=== PATIENT | female | born 1935 | race Caucasian/White ===

== ENCOUNTER 2018-04-23 13:41 | Emergency (ER) | payer MEDICARE, BC ==
--- NOTE | 2018-04-23 14:04 | EDM.PDOC ---
ED HPI GENERAL MEDICAL PROBLEM - General Chief Complaint: General Stated Complaint: FELL Time Seen by Provider: 04/23/18 14:02 Source of Information: Reports: Patient, RN Notes Reviewed History Limitations: Reports: No Limitations - History of Present Illness INITIAL COMMENTS - FREE TEXT/NARRATIVE: Naye presents today via EMS for complaints of fall at unknown time last night or today. She was found at 11:30 wrapped in a sheet on her bedroom floor. Patient's home health aide left yesterday at 1600. Naye complains of pain to her right thigh, she denies other areas of pain, nausea, dizziness or difficulty breathing. - Related Data Allergies Allergy/AdvReac Type Severity Reaction Status Date / Time Sulfa (Sulfonamide Allergy Cannot Verified 04/23/18 13:55 Antibiotics) Remember Home Meds: Home Meds Citalopram [Citalopram HBr] 1 tab PO DAILY 04/23/18 [History] Donepezil HCl 1 tab PO DAILY 04/23/18 [History] Losartan [Cozaar] 1 tab PO DAILY 04/23/18 [History] Oxybutynin Chloride [Ditropan Xl] 1 tab PO DAILY 04/23/18 [History] ED ROS GENERAL - Review of Systems Review Of Systems: See Below Constitutional: Denies: Fever, Chills, Malaise HEENT: Reports: No Symptoms Cardiovascular: Reports: No Symptoms Endocrine: Reports: No Symptoms GI/Abdominal: Reports: No Symptoms : Reports: No Symptoms Musculoskeletal: Reports: Other (right thigh pain) Skin: Reports: Dryness. Denies: Bruising, Pruritis, Rash, Erythema, Wound Neurological: Reports: Confusion, Other (Fall). Denies: Dizziness, Headache, Numbness, Tingling, Weakness Psychiatric: Reports: Confusion, Other (Patient rn patient care reports one day last week she arrived to Naye's house at 1530, found her still laying in bed. Naye reported to her that she had a terrible dream that she had been sick all day. The rn patient care found Naye had used her clean clothing that was laid out to try to clean up vomit on the floor. ) Hematologic/Lymphatic: Reports: No Symptoms Immunologic: Reports: No Symptoms ED EXAM, GENERAL - Physical Exam Exam: See Below Free Text/Narrative:: Naye is a pleasant 83 year old female presenting after being found on the floor of her home today at 11:30 Naye complains of pain to her right thigh. Exam Limited By: Other (Patient suffers from memory issues, she has no official diagnosis of Alzheimer disease.) General Appearance: No Apparent Distress, Other (Flat affect, looks to rn patient care for answering questions. ) Eye Exam: Bilateral Eye: EOMI, Normal Inspection, PERRL Ears: Normal External Exam, Normal Canal, Hearing Grossly Normal, Normal TMs Ear Exam: Bilateral Ear: Auricle Normal, Canal Normal, TM normal Nose: Normal Inspection, Normal Mucosa, No Blood Throat/Mouth: Normal Inspection, Normal Lips, Normal Voice, No Airway Compromise Head: Atraumatic, Normocephalic Neck: Normal Inspection, Supple, Non-Tender, Full Range of Motion. No: Lymphadenopathy (R), Lymphadenopathy (L) Respiratory/Chest: No Respiratory Distress, Lungs Clear, Normal Breath Sounds, No Accessory Muscle Use, Chest Non-Tender Cardiovascular: Normal Peripheral Pulses, Regular Rate, Rhythm, No Edema, No Rub , Other (Noted murmur) Peripheral Pulses: 2+: Radial (L), Radial (R), Dorsalis Pedis (L), Dorsalis Pedis (R) GI/Abdominal: Normal Bowel Sounds, Soft, Non-Tender, No Organomegaly, No Distention, No Mass. No: Guarding, Rigid, Rebound Back Exam: Normal Inspection, Full Range of Motion. No: CVA Tenderness (R), CVA Tenderness (L) Extremities: No Pedal Edema, Normal Capillary Refill, Leg Pain, Limited Range of Motion, Other (pain with internal rotation to right hip). No: Joint Swelling , Nasim's Sign, Increased Warmth, Pallor Neurological: Confused, Memory Loss Remote Events, Other (Looks to rn patient care to answer questions when asked questions. She is not alert to day, time, year or situtation. ) Psychiatric: Normal Affect, Normal Mood Skin Exam: Warm, Dry, Intact, Normal Color, No Rash Lymphatic: No Adenopathy EKG INTERPRETATION EKG Date: 04/23/18 Time: 14:25 Rhythm: NSR Rate (Beats/Min): 63 [place]: Normal P-Wave: Present QRS: Normal ST-T: Normal QT: Normal Course - Vital Signs Last Recorded V/S: Last Vital Signs Temp 36.7 C 04/23/18 15:21 Pulse 63 04/23/18 15:21 Resp 18 04/23/18 15:21 BP 125/62 04/23/18 15:21 Pulse Ox 96 04/23/18 15:21 - Orders/Labs/Meds Orders: Active Orders 24 hr Category Date Time Status EKG Documentation Completion [RC] ASDIRECTED Care 04/23/18 14:07 Active Saline Lock Insert [OM.PC] Routine Oth 04/23/18 14:27 Ordered EKG 12 Lead [EK] Routine Ther 04/23/18 14:07 Ordered Labs: Laboratory Tests 04/23/18 04/23/18 04/23/18 Range/Units 14:00 14:00 14:00 WBC 9.0 (4.5-11.0) K/uL RBC 4.02 (3.30-5.50) M/uL Hgb 11.9 L (12.0-15.0) g/dL Hct 36.3 (36.0-48.0) % MCV 90 (80-98) fL MCH 30 (27-31) pg MCHC 33 (32-36) % Plt Count 304 (150-400) K/uL Neut % (Auto) 79 H (36-66) % Lymph % (Auto) 7 L (24-44) % [place] % (Auto) 14 H (2-6) % Eos % (Auto) 0 L (2-4) % Baso % (Auto) 0 (0-1) % Sodium 137 L (140-148) mmol/L Potassium 3.9 (3.6-5.2) mmol/L Chloride 101 (100-108) mmol/L Carbon Dioxide 27 (21-32) mmol/L Anion Gap 12.9 (5.0-14.0) mmol/L BUN 16 (7-18) mg/dL Creatinine 0.9 (0.6-1.0) mg/dL Est Cr Clr Drug Dosing 40.18 mL/min Estimated GFR (MDRD) 60 (>60) Glucose 98 (74-106) mg/dL Calcium 8.2 L (8.5-10.1) mg/dL Total Bilirubin 0.6 (0.2-1.0) mg/dL AST 18 (15-37) U/L ALT 14 (12-78) U/L Alkaline Phosphatase 75 (46-116) U/L CK-MB (CK-2) 2.7 (0-3.6) mg/mL Troponin I (0.000-0.056) ng/mL Total Protein 6.3 L (6.4-8.2) g/dL Albumin 3.1 L (3.4-5.0) g/dL Globulin 3.2 (2.3-3.5) g/dL Albumin/Globulin Ratio 1.0 L (1.2-2.2) TSH, Ultra Sensitive 1.340 (0.358-3.740) uIU/mL Urine Color Urine Appearance Urine pH (4.5-8.0) Ur Specific [place] (1.008-1.030) Urine Protein (NEGATIVE) mg/dL Urine Glucose (UA) (NEGATIVE) mg/dL Urine Ketones (NEGATIVE) mg/dL Urine Occult Blood (NEGATIVE) Urine Nitrite (NEGATIVE) Urine Bilirubin (NEGATIVE) Urine Urobilinogen (NORMAL) mg/dL Ur Leukocyte Esterase (NEGATIVE) Urine RBC (0-5) Urine WBC (0-5) Ur Epithelial Cells Amorphous Sediment Urine Bacteria Urine Mucus 04/23/18 04/23/18 Range/Units 14:09 14:32 WBC (4.5-11.0) K/uL RBC (3.30-5.50) M/uL Hgb (12.0-15.0) g/dL Hct (36.0-48.0) % MCV (80-98) fL MCH (27-31) pg MCHC (32-36) % Plt Count (150-400) K/uL Neut % (Auto) (36-66) % Lymph % (Auto) (24-44) % [place] % (Auto) (2-6) % Eos % (Auto) (2-4) % Baso % (Auto) (0-1) % Sodium (140-148) mmol/L Potassium (3.6-5.2) mmol/L Chloride (100-108) mmol/L Carbon Dioxide (21-32) mmol/L Anion Gap (5.0-14.0) mmol/L BUN (7-18) mg/dL Creatinine (0.6-1.0) mg/dL Est Cr Clr Drug Dosing mL/min Estimated GFR (MDRD) (>60) Glucose (74-106) mg/dL Calcium (8.5-10.1) mg/dL Total Bilirubin (0.2-1.0) mg/dL AST (15-37) U/L ALT (12-78) U/L Alkaline Phosphatase (46-116) U/L CK-MB (CK-2) (0-3.6) mg/mL Troponin I < 0.017 (0.000-0.056) ng/mL Total Protein (6.4-8.2) g/dL Albumin (3.4-5.0) g/dL Globulin (2.3-3.5) g/dL Albumin/Globulin Ratio (1.2-2.2) TSH, Ultra Sensitive (0.358-3.740) uIU/mL Urine Color Yellow Urine Appearance Clear Urine pH 6.0 (4.5-8.0) Ur Specific [place] 1.015 (1.008-1.030) Urine Protein Negative (NEGATIVE) mg/dL Urine Glucose (UA) Normal (NEGATIVE) mg/dL Urine Ketones 15 H (NEGATIVE) mg/dL Urine Occult Blood Negative (NEGATIVE) Urine Nitrite Negative (NEGATIVE) Urine Bilirubin Negative (NEGATIVE) Urine Urobilinogen Normal (NORMAL) mg/dL Ur Leukocyte Esterase Negative (NEGATIVE) Urine RBC 0-5 (0-5) Urine WBC 0-5 (0-5) Ur Epithelial Cells Rare Amorphous Sediment Few Urine Bacteria Not seen Urine Mucus Not seen Patient lab work reviewed, Hgb 11.9. Meds: Medications Discontinued Medications Generic Name Dose Route Start Last Admin Trade Name Freq PRN Reason Stop Dose Admin Silver Nitrate 1 each 04/23/18 16:12 Silver Nitrate TOP 04/23/18 16:13 ONETIME ONE Sodium Chloride 10 ml 04/23/18 14:27 Saline Flush FLUSH ASDIRECTED PRN Keep Vein Open - Radiology Interpretation Free Text/Narrative:: Chest x-ray wet read. Radiologist report: Heart size and pulmonary vascularity are normal. No infiltrate is identified. There is some blunting of the right costophrenic angle which may be due to pleural fluid or thickening. There is some nodularity seen in both lung reid. Most of these appear to be calcified costochondrial cartilage. Impression: Ill defined nodular densities are most likely in the costal cartilage. right femur/hip x-ray wet read. 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 Deformity of the right pubic ramus appears to be of remote chronology. - Re-Assessments/Exams Free Text/Narrative Re-Assessment/Exam: 04/23/18 15:02 Patient up to ambulate, no pain with ambulation. Patient is slightly unsteady. 04/23/18 15:50 Patient daughter in law present, reviewed patient status, lab work and x-rays. Patient and daughter in agreement with plan. Naye will be discharged to home with her daughter in law. Recommended Naye not be living by herself. Departure - Departure Time of Disposition: 15:56 Disposition: Home, Self-Care 01 Condition: Fair Clinical Impression: Fall, Dementia - Discharge Information *PRESCRIPTION DRUG MONITORING PROGRAM REVIEWED*: No *COPY OF PRESCRIPTION DRUG MONITORING REPORT IN PATIENT JB: No Instructions: Dementia, Fall Prevention in the Home Referrals: Stephanie Garcia PA [Primary Care Provider] - Forms: ED Department Discharge Additional Instructions: You have been evaluated and treated in the emergency room for a fall. Your x-rays of the right femur and hip did not show any fractures. They did show worsening arthritis. it would be best to use your walker to help you with walking and stability. Your chest x-ray did not show any acute findings. There were noted lung nodules in each lung. Follow up with your primary provider for a recheck in the next 4 weeks. It would be best for you to stay with family, especially at night to make sure you are safe and doing well. Keep yourself hydrated. You may take acetaminophen and ibuprofen as needed for pain. Follow up with your primary provider in 2 weeks for a recheck of your status. Return to the emergency room for worsening, issues or concerns. - My Orders Last 24 Hours: My Active Orders 04/23/18 14:07 EKG Documentation Completion [RC] ASDIRECTED EKG 12 Lead [EK] Routine 04/23/18 14:27 Saline Lock Insert [OM.PC] Routine - Assessment/Plan Last 24 Hours: My Active Orders 04/23/18 14:07 EKG Documentation Completion [RC] ASDIRECTED EKG 12 Lead [EK] Routine 04/23/18 14:27 Saline Lock Insert [OM.PC] Routine Plan: Patient evaluated and treated in the emergency room for a fall. X-rays of the right femur and hip did not show any fractures. They did show worsening arthritis. it would be best to use walker to help with walking and stability. Chest x-ray did not show any acute findings. There were noted lung nodules in each lung. Follow up with primary provider for a recheck in the next 4 weeks. It would be best to stay with family, especially at night to make sure patient is safe and doing well. Keep hydrated. May take acetaminophen and ibuprofen as needed for pain. Follow up with primary provider in 2 weeks for a recheck of status. Return to the emergency room for worsening, issues or concerns.
[2018-04-23] MEDS ORDERED: Sodium Chloride 0.9% 10 ML Syringe FLUSH PRN (14:27)
--- NOTE | 2018-04-23 15:10 | CR ---
Femur Min 2V Rt CLINICAL HISTORY: Right femur pain FINDINGS: There are severe degenerative changes in the right hip with significant joint space narrowi ng and periarticular spurring. There is deformity of the right superior and inferior pubis. This appe ars to be an older fracture. It was not present in 2009. 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
--- NOTE | 2018-04-23 15:13 | CR ---
CHEST: AP CLINICAL HISTORY:Fall COMPARISON:None FINDINGS: Heart size and pulmonary vascularity are normal. No infiltrate is identified. There is sisi e blunting of the right costophrenic angle which may be due to pleural fluid or thickening. There is some nodularity seen in both lung reid. Most of these appear to be calcified costochondral cartilag e. Impression: Ill-defined nodular densities are most likely in the costal cartilage 2 view chest is recommended when patient's condition allows
[2018-04-23] MEDS ORDERED: Silver Nitrate Applicator Each TOP ONE (16:12)
== END 2018-04-23 16:16 | disposition home or self-care (01) ==
LOC: JP.ED 13:41
DX: F03.90 Unspecified dementia, unspecified severity, without behavioral disturbance, psychotic disturbance, mood disturbance, and anxiety (principal); M25.551 Pain in right hip; Z88.2 Allergy status to sulfonamides; Z79.899 Other long term (current) drug therapy; W19.XXXA Unspecified fall, initial encounter
CPT/HCPCS: 36415; 71045; 71045-26; 73552-26-LT; 73552-RT; 80053; 81001; 82553; 84443; 84484; 85025; 93005; 99284-25

== ENCOUNTER 2019-12-19 12:18 | Emergency (ER) | payer MEDICARE, BC ==
--- NOTE | 2019-12-19 13:31 | EDM.PDOC ---
ED HPI GENERAL MEDICAL PROBLEM - General Chief Complaint: General Stated Complaint: WEAKNESS RIGHT ARM IS SORE Time Seen by Provider: 12/19/19 13:23 Source of Information: Reports: Patient, Family History Limitations: Reports: Altered Mental Status, Other (And has significant dementia and all history and answers to questions are provided by her daughter who is at bedside.) - History of Present Illness INITIAL COMMENTS - FREE TEXT/NARRATIVE: Patient has had gradual onset of total body weakness although daughter suspects that the right side is slightly weaker than the left. This was not any sudden onset. Patient has previous diagnosis of dementia. The patient would be able to complain of pain if she had it but otherwise is generally nonverbal and appetite is markedly decreased. Daughter is aware only that the patient's right ankle is painful. The daughter admits to knowing that this may be progression of the patient's dementia but wants to make sure nothing else is going on. Onset: Gradual Duration: Getting Worse Location: Reports: Generalized - Related Data Allergies Allergy/AdvReac Type Severity Reaction Status Date / Time Sulfa (Sulfonamide Allergy Unknown Cannot Verified 12/19/19 13:01 Antibiotics) Remember Home Meds: Home Meds Citalopram [Citalopram HBr] 1 tab PO DAILY 04/23/18 [History] Donepezil HCl 1 tab PO DAILY 04/23/18 [History] Past Medical History Cardiovascular History: Reports: Blood Clots/VTE/DVT, Hypertension Gastrointestinal History: Reports: Chronic Constipation, Fecal Incontinence, Inflammatory Bowel Disease Genitourinary History: Reports: Urinary Incontinence [employer] History: Reports: Neurological History: Reports: Concussion Other Neuro History: concussion in 2017, dementia Psychiatric History: Reports: Dementia Endocrine/Metabolic History: Reports: Hypothyroidism Hematologic History: Reports: Anemia Other Oncologic History: skin cancer - Past Surgical History Other Musculoskeletal Surgeries/Procedures:: hip and knee fracture Social & Family History - Tobacco Use Smoking Status *Q: Never Smoker - Caffeine Use Caffeine Use: Reports: Tea - Recreational Drug Use Recreational Drug Use: No ED ROS GENERAL - Review of Systems Review Of Systems: See Below Constitutional: Reports: Chills (Had chills and was clammy on awakening this morning). Denies: Fever HEENT: Reports: No Symptoms Respiratory: Denies: Wheezing, Cough Cardiovascular: Denies: Chest Pain Endocrine: Reports: No Symptoms GI/Abdominal: Reports: Other (Is incontinent of urine and stool). Denies: Abdominal Pain : Reports: No Symptoms Musculoskeletal: Reports: Other (Right ankle pain and swelling) Skin: Denies: Rash Neurological: Reports: Confusion, Difficulty Walking, Weakness (Daughter tells me initially that weakness is generalized and that the patient has difficulty sitting up and standing. Later she tells me she feels that the right side may be weaker than the left.) Psychiatric: Reports: No Symptoms ED EXAM, GENERAL - Physical Exam Exam: See Below Exam Limited By: Altered Mental Status General Appearance: Alert, No Apparent Distress Eye Exam: Bilateral Eye: EOMI, PERRL Ears: Normal External Exam Nose: Normal Inspection Throat/Mouth: Normal Lips, Normal Teeth, Other (His membranes appear moist) Head: Atraumatic, Normocephalic Neck: Normal Inspection, Supple Respiratory/Chest: No Respiratory Distress, Lungs Clear, Normal Breath Sounds Cardiovascular: Normal Peripheral Pulses, Regular Rate, Rhythm GI/Abdominal: Soft, Non-Tender, No Mass Back Exam: Full Range of Motion Extremities: Normal Inspection, Normal Range of Motion, Other (Slight right ankle swelling laterally. There is also what appears to be a healing scabbed wound overlying the right lateral malleolus) Neurological: Alert, Unresponsive (She is nonverbal to me, but daughter states that the patient would be able to express if she had pain anywhere) Skin Exam: Warm, Dry, Intact, No Rash EKG INTERPRETATION EKG Date: 12/19/19 Time: 14:15 Rhythm: A-Flutter Rate (Beats/Min): 57 QRS: Normal Course - Vital Signs Text/Narrative:: Differential diagnosis includes: Progression of dementia, CVA, urinary tract infection, electrolyte abnormality, dehydration, myocardial ischemia, ankle fracture, DVT. At 3:25 PM I discussed with the daughter of the patient the fact that CBC, comprehensive profile, head CT scan, and urinalysis were all normal. Right ankle x-ray shows only edema and swelling no evidence of bony abnormality. D-dimer is markedly elevated. The patient has a history of DVT in her left lower extremity. Will order ultrasound of the right lower extremity to rule out DVT. 173 ultrasound for DVT is reported as negative. I have informed patient and daughter of all results. I feel patient's symptoms are a progression of dementia and have strongly recommended follow-up with primary care. Last Recorded V/S: Last Vital Signs Temp 35.9 C L 12/19/19 12:58 Pulse 58 L 12/19/19 12:58 Resp 16 12/19/19 12:58 BP 139/54 L 12/19/19 12:58 Pulse Ox 97 12/19/19 12:58 - Orders/Labs/Meds Orders: Active Orders 24 hr Category Date Time Status EKG Documentation Completion [RC] ASDIRECTED Care 12/19/19 13:37 Active Insert Urinary Catheter [OM.PC] Q24H Care 12/19/19 13:45 Ordered Urinary Catheter Assessment [RC] ASDIRECTED Care 12/19/19 13:40 Active Extremity Non Vascular Rt [US] Stat Exams 12/19/19 15:26 Stop Req VL Duplex Lwr Ext Veins Ltd Rt [US] Stat Exams 12/19/19 16:10 Ordered EKG 12 Lead [EK] Stat Ther 12/19/19 13:37 Ordered Labs: Laboratory Tests 12/19/19 12/19/19 12/19/19 Range/Units 13:37 13:37 13:40 WBC 8.8 (4.5-11.0) K/uL RBC 4.45 (3.30-5.50) M/uL Hgb 13.3 (12.0-15.0) g/dL Hct 41.0 (36.0-48.0) % MCV 92 (80-98) fL MCH 30 (27-31) pg MCHC 32 (32-36) % Plt Count 253 (150-400) K/uL PT 10.5 (9.5-12.0) sec INR 0.97 (0.80-1.20) D-Dimer, Quantitative 4420 H (0.0-400.0) ng/mL Sodium (140-148) mmol/L Potassium (3.6-5.2) mmol/L Chloride (100-108) mmol/L Carbon Dioxide (21-32) mmol/L Anion Gap (5.0-14.0) mmol/L BUN (7-18) mg/dL Creatinine (0.6-1.0) mg/dL Est Cr Clr Drug Dosing mL/min Estimated GFR (MDRD) (>60) Glucose (74-106) mg/dL Lactic Acid (0.4-2.0) mmol/L Calcium (8.5-10.1) mg/dL Total Bilirubin (0.2-1.0) mg/dL AST (15-37) U/L ALT (12-78) U/L Alkaline Phosphatase (46-116) U/L Troponin I (0.000-0.056) ng/mL Total Protein (6.4-8.2) g/dL Albumin (3.4-5.0) g/dL Globulin (2.3-3.5) g/dL Albumin/Globulin Ratio (1.2-2.2) Urine Color (YELLOW) Urine Appearance (CLEAR) Urine pH (5.0-8.0) Ur Specific [place] (1.008-1.030) Urine Protein (NEGATIVE) mg/dL Urine Glucose (UA) (NEGATIVE) mg/dL Urine Ketones (NEGATIVE) mg/dL Urine Occult Blood (NEGATIVE) Urine Nitrite (NEGATIVE) Urine Bilirubin (NEGATIVE) Urine Urobilinogen (0.2-1.0) EU/dL Ur Leukocyte Esterase (NEGATIVE) Urine RBC (0-5) Urine WBC (0-5) Ur Epithelial Cells Amorphous Sediment Urine Bacteria Urine Mucus 12/19/19 12/19/19 12/19/19 Range/Units 14:35 14:47 14:47 WBC (4.5-11.0) K/uL RBC (3.30-5.50) M/uL Hgb (12.0-15.0) g/dL Hct (36.0-48.0) % MCV (80-98) fL MCH (27-31) pg MCHC (32-36) % Plt Count (150-400) K/uL PT (9.5-12.0) sec INR (0.80-1.20) D-Dimer, Quantitative (0.0-400.0) ng/mL Sodium 144 (140-148) mmol/L Potassium 3.6 (3.6-5.2) mmol/L Chloride 106 (100-108) mmol/L Carbon Dioxide 30 (21-32) mmol/L Anion Gap 8.3 (5.0-14.0) mmol/L BUN 26 H D (7-18) mg/dL Creatinine 1.0 (0.6-1.0) mg/dL Est Cr Clr Drug Dosing 36.81 mL/min Estimated GFR (MDRD) 53 L (>60) Glucose 86 (74-106) mg/dL Lactic Acid 2.2 H (0.4-2.0) mmol/L Calcium 8.3 L (8.5-10.1) mg/dL Total Bilirubin 0.6 (0.2-1.0) mg/dL AST 29 (15-37) U/L ALT 21 (12-78) U/L Alkaline Phosphatase 79 (46-116) U/L Troponin I < 0.017 (0.000-0.056) ng/mL Total Protein 6.6 (6.4-8.2) g/dL Albumin 3.5 (3.4-5.0) g/dL Globulin 3.1 (2.3-3.5) g/dL Albumin/Globulin Ratio 1.1 L (1.2-2.2) Urine Color Yellow (YELLOW) Urine Appearance Slightly cloudy A (CLEAR) Urine pH 5.5 (5.0-8.0) Ur Specific [place] >= 1.030 (1.008-1.030) Urine Protein Negative (NEGATIVE) mg/dL Urine Glucose (UA) Negative (NEGATIVE) mg/dL Urine Ketones Negative (NEGATIVE) mg/dL Urine Occult Blood Negative (NEGATIVE) Urine Nitrite Negative (NEGATIVE) Urine Bilirubin Negative (NEGATIVE) Urine Urobilinogen 0.2 (0.2-1.0) EU/dL Ur Leukocyte Esterase Negative (NEGATIVE) Urine RBC 0-5 (0-5) Urine WBC 0-5 (0-5) Ur Epithelial Cells Few Amorphous Sediment Not seen Urine Bacteria Few Urine Mucus Moderate Departure - Departure Time of Disposition: 17:30 Disposition: Home, Self-Care 01 Condition: Good Clinical Impression: Dementia Qualifiers: Dementia type: unspecified type Dementia behavioral disturbance: without behavioral disturbance Qualified Code(s): F03.90 - Unspecified dementia without behavioral disturbance - Discharge Information Referrals: Stephanie Garcia PA [Primary Care Provider] - Forms: ED Department Discharge Additional Instructions: Follow with primary care or her neurologist as soon as possible Sepsis Event Note - Evaluation Sepsis Screening Result: No Definite Risk - Focused Exam Vital Signs: Vital Signs Temp Pulse Resp BP Pulse Ox 12/19/19 12:58 35.9 C L 58 L 16 139/54 L 97 Date Exam was Performed: 12/19/19 Time Exam was Performed: 17:30 - My Orders Last 24 Hours: My Active Orders 12/19/19 13:37 EKG Documentation Completion [RC] ASDIRECTED EKG 12 Lead [EK] Stat 12/19/19 13:40 Urinary Catheter Assessment [RC] ASDIRECTED 12/19/19 13:45 Insert Urinary Catheter [OM.PC] Q24H 12/19/19 15:26 Extremity Non Vascular Rt [US] Stat 12/19/19 16:10 VL Duplex Lwr Ext Veins Ltd Rt [US] Stat - Assessment/Plan Last 24 Hours: My Active Orders 12/19/19 13:37 EKG Documentation Completion [RC] ASDIRECTED EKG 12 Lead [EK] Stat 12/19/19 13:40 Urinary Catheter Assessment [RC] ASDIRECTED 12/19/19 13:45 Insert Urinary Catheter [OM.PC] Q24H 12/19/19 15:26 Extremity Non Vascular Rt [US] Stat 12/19/19 16:10 VL Duplex Lwr Ext Veins Ltd Rt [US] Stat
--- NOTE | 2019-12-19 14:11 | CRLCR ---
INDICATION: Pain and swelling TECHNIQUE: Three views right ankle COMPARISON: None FINDINGS: Bones: Alignment is normal. No fractures or bone lesions. Joint spaces: Unremarkable. Soft tissues: Lateral ankle edema. IMPRESSION: Lateral ankle edema. Dictated by Pantera Ren MD @ 12/19/2019 2:11:01 PM Dictated by: Pantera Ren MD @ 12/19/2019 14:11:08 (Electronically Signed)
--- NOTE | 2019-12-19 14:22 | CRLCT ---
INDICATION: Dementia TECHNIQUE: CT head without contrast. COMPARISON: None FINDINGS: CSF spaces: Within normal limits for age. Brain parenchyma: The ojeda-white differentiation is normal. No sign of mass, hemorrhage, or midline shift. Periventricular white matter changes consistent chronic microvascular disease. Diffuse volume loss. Skull base and calvarium: The visualized paranasal sinuses and mastoid air cells demonstrate no acute or significant findings. The visualized orbits are grossly unremarkable. No skull fractures. IMPRESSION: No acute intracranial abnormalities. Periventricular white matter changes consistent chronic microvascular disease. Diffuse volume loss. Dictated by Pantera Ren MD @ 12/19/2019 2:21:24 PM Please note that all CT scans at this facility use dose modulation, iterative reconstruction, and/or weight-based dosing when appropriate to reduce radiation dose to as low as reasonably achievable. Dictated by: Pantera Ren MD @ 12/19/2019 14:21:32 (Electronically Signed)
--- NOTE | 2019-12-19 18:21 | CRLUS ---
INDICATION: Right leg swelling TECHNIQUE: Ultrasound venous duplex left lower extremity. Barron-scale, color Doppler, and spectral Doppler imaging were performed with compression and augmentation. COMPARISON: None FINDINGS: Deep veins: The left common femoral, femoral, popliteal, and visualized calf veins are fully compressible, demonstrate normal color flow, and normal response to mechanical augmentation. The Duplex Doppler waveforms are normal in appearance. Superficial veins: The visualized greater saphenous and superficial veins of the leg and calf are unremarkable. Soft tissue: No masses or cysts are identified. No adenopathy is seen. IMPRESSION: 1. No sonographic evidence of acute deep venous thrombosis seen. Dictated by: Yassine Marvin MD @ 12/19/2019 18:20:35 (Electronically Signed)
== END 2019-12-19 18:01 | disposition home or self-care (01) ==
LOC: JP.ED 12:18
DX: F03.90 Unspecified dementia, unspecified severity, without behavioral disturbance, psychotic disturbance, mood disturbance, and anxiety (principal); I10 Essential (primary) hypertension; Z88.2 Allergy status to sulfonamides; Z79.899 Other long term (current) drug therapy
CPT/HCPCS: 36415; 70450; 73610-RT; 80053; 81001; 83605; 84484; 85027; 85379; 85610; 93005; 93010; 93971-RT; 99284; 99285-25